=== PATIENT | male | born 1975 | race Caucasian/White ===

== ENCOUNTER → 2019-01-03 | Outpatient (CLI) | payer BC ==
[2019-01-03 15:22] LABS: Hemoglobin 15.1 g/dL (13.5-17.5)
[2019-01-03 15:36] LABS: Urine Bacteria NONE SEEN /hpf (None Seen); Urine Blood Negative /uL (Negative); Urine Mucus FEW (None Seen); Urine Specific Gravity 1.023 (1.001-1.035); Urine WBC 1 /hpf (0 - 3)
[2019-01-03 15:41] LABS: BUN/Creatinine Ratio 13.6; Calcium 8.9 mg/dL (8.5-10.1); Magnesium 2.1 mg/dL (1.6-2.6); Uric Acid 4.5 mg/dL (3.5-7.2)
[2019-01-03 15:47] LABS: Bilirubin, Total 0.4 mg/dL (0.2-1.0); Total Protein 7.7 g/dL (6.4-8.2)
[2019-01-03 15:56] LABS: Free T4 (Free Thyroxine) 0.96 ng/dL (0.89-1.76)
[2019-01-04 04:06] LABS: RPR Non Reactive (Non Reactive)
== END | disposition home or self-care (01) ==
LOC: LAB 14:13
PROVIDERS: ATTEND Internal Medicine
DX: Z76.89 Persons encountering health services in other specified circumstances (principal)
CPT/HCPCS: 36415; 80053; 80061; 81001; 82607; 83735; 84439; 84443; 84550; 85018; 86592; 86703; 87086

== ENCOUNTER 2019-05-13 11:16 | Emergency (ER) | payer BC ==
[~2019-05-13] VITALS: Ht 177.8 cm; Wt 124.7 kg
[2019-05-13] MEDS ORDERED: ALUM & MAG HYDROX-SIMETH LIQ(MAALOX) 30 ML PO ONE (12:00)
[2019-05-13] MEDS ORDERED: DONNATAL 5ml ORAL Elix (BELLADONNA ALK-PHENOBARB) PO ONE (12:00)
[2019-05-13] MEDS ORDERED: SODIUM CHLORIDE 0.9% 1,000 ML IV ONE (12:00)
[2019-05-13] MEDS ORDERED: LIDOCAINE VISCOUS 2% 15ML UD PO ONE (12:00)
[2019-05-13 12:04] LABS: Basophils # (auto) 0.1 uL; Basophils % (auto) 0.4 % (0.0-2.0); Eosinophils # (auto) 0 uL; Eosinophils % (auto) 0.1 % (0.0-7.0); Hematocrit 46.1 % (41.0-53.0); Hemoglobin 15.5 g/dL (13.5-17.5); Lymphocytes # (auto) 0.3 uL; Lymphocytes % (auto) 1.9 % (10.0-50.0); Mean Corpuscular Hemoglobin 28.5 pg (28.0-32.0); Mean Corpuscular Hgb Conc. 33.6 g/dL (32.0-36.0); Mean Corpuscular Volume 84.7 fL (80.0-100.0); Monocytes # (auto) 0.8 uL; Monocytes % (auto) 4.5 % (0.0-12.0); Neutrophils # (auto) 16.2 uL; Neutrophils % (auto) 93.1 % (37.0-80.0); Nucleated Red Blood Cells % 0.1 %; Platelet Count (auto) 290 10^3/uL (140-450); Red Blood Cells 5.44 10^6/uL (4.5-5.90); White Blood Cell 17.4 10^3/uL (4.4-10.8)
[2019-05-13 12:12] LABS: Albumin 3.6 g/dL (3.4-5.0); Calcium 8.5 mg/dL (8.5-10.1)
[2019-05-13 12:15] LABS: BUN/Creatinine Ratio 12.5
[2019-05-13 12:18] LABS: Bilirubin, Total 0.8 mg/dL (0.2-1.0); Total Protein 7.7 g/dL (6.4-8.2)
[2019-05-13] MEDS ORDERED: metroNIDAZOLE 500MG/100ML 100 ML IV ONE (14:30)
[2019-05-13] MEDS ORDERED: cefTRIAXone 1GM/50ML D5W 50 ML IV ONE (14:30)
[2019-05-13 16:00] VITALS: BP 105/62
== END 2019-05-13 14:42 | disposition home or self-care (01) ==
LOC: ER 11:16
DX: K52.9 Noninfective gastroenteritis and colitis, unspecified (principal); D72.829 Elevated white blood cell count, unspecified; Z88.0 Allergy status to penicillin
CPT/HCPCS: 36415; 74176; 80053; 85025; 96361; 96365; 96368; 99284; J0696; J3490; J7030

== ENCOUNTER → 2020-01-11 | Outpatient (CLI) | payer OTHER ==
[~2020-01-11] MED LIST: ACET-1304 PO; ALBUAER3 IN; ASCO500T11 PO; AZIT250T9 PO; CHOL20007 PO; IBUP200T76 PO; MULTTAB5 PO; NAPR220C PO; PSEU1SYP6 PO
== END | disposition home or self-care (01) ==
LOC: LAB 15:33
PROVIDERS: ATTEND Nurse Practitioner Family
DX: U07.1 COVID-19 (principal)

== ENCOUNTER 2020-01-15 05:47 | Inpatient (IN) | payer BC, OTHER ==
[~2020-01-15] VITALS: Ht 177.8 cm; Wt 122.2 kg
[2020-01-15] MEDS ORDERED: hydrOXYchloroQUINE SULFATE 200 MG TAB PO ONE (07:45)
[2020-01-15] MEDS ORDERED: DOXYCYCLINE 100MG/250ML 250 ML IV ONE (07:45)
[2020-01-15] MEDS ORDERED: DexAMETHasone SOD PHOS 10MG/1ML VIAL INJ IV ONE (07:45)
[2020-01-15 08:14] LABS: Basophils # (auto) 0 10 ^3/uL (0-0.2); Basophils % (auto) 0.2 % (0.0-2.0); Eosinophils # (auto) 0 10 ^3/uL (0-0.8); Eosinophils % (auto) 0.8 % (0.0-7.0); Hematocrit 42.8 % (41.0-53.0); Hemoglobin 14.4 g/dL (13.5-17.5); Lymphocytes # (auto) 0.7 10 ^3/uL (0.4-5.4); Lymphocytes % (auto) 12.7 % (10.0-50.0); Mean Corpuscular Hemoglobin 28.1 pg (28.0-32.0); Mean Corpuscular Hgb Conc. 33.7 g/dL (32.0-36.0); Mean Corpuscular Volume 83.3 fL (80.0-100.0); Monocytes # (auto) 0.7 10 ^3/uL (0-1.3); Neutrophils # (auto) 4.4 10 ^3/uL (1.6-8.6); Neutrophils % (auto) 74.3 % (37.0-80.0); Nucleated Red Blood Cells % 0.3 %; Platelet Count (auto) 281 10^3/uL (140-450); Red Blood Cells 5.14 10^6/uL (4.5-5.90); Red Cell Distribution Width 13.8 % (11.8-14.3); White Blood Cell 5.9 10^3/uL (4.4-10.8)
[2020-01-15 08:23] LABS: Calcium 8.3 mg/dL (8.5-10.1); Potassium 4.1 mmol/L (3.5-5.1)
[2020-01-15 08:34] LABS: BUN/Creatinine Ratio 13.6; Bilirubin, Total 0.3 mg/dL (0.2-1.0); CRP High Sensitivity 13.3 mg/dL (< 0.3); Total Protein 7.6 g/dL (6.4-8.2)
[2020-01-15 09:01] LABS: Urine Bacteria NONE SEEN /hpf (None Seen); Urine Blood Negative /uL (Negative); Urine Mucus FEW (None Seen); Urine Specific Gravity 1.029 (1.001-1.035); Urine WBC 2 /hpf (0 - 3)
[2020-01-15] MEDS ORDERED: ACETAMINOPHEN 325 MG TAB PO ONE (12:30)
[2020-01-15] MEDS ORDERED: SODIUM CHLORIDE 0.9% 1,000 ML IV SCH (16:43)
[2020-01-15] MEDS ORDERED: LORazepam 0.5 MG TAB PO PRN (16:45)
[2020-01-15] MEDS ORDERED: NITROGLYCERIN 0.4 MG SL TAB SL PRN (16:45)
[2020-01-15] MEDS ORDERED: ACETAMINOPHEN 500 MG TAB PO PRN (16:45)
[2020-01-15] MEDS ORDERED: HYDROcodone-ACET 5/325MG TAB PO PRN (16:45)
[2020-01-15] MEDS ORDERED: ALUM & MAG HYDROX-SIMETH LIQ(MAALOX) 30 ML PO PRN (16:45)
[2020-01-15] MEDS ORDERED: DOCUSATE SOD 100 MG CAP PO PRN (16:45)
[2020-01-15] MEDS ORDERED: ONDANSETRON HCL 4 MG/2 ML VIAL IV PRN (16:45)
[2020-01-15] MEDS ORDERED: MORPHINE SULF INJ 2 MG/ML SYRINGE 1ML IV PRN ×2 (16:45)
[2020-01-15] MEDS ORDERED: HYDROmorphone HCL 2 MG/ML VL IV PRN (16:45)
[2020-01-15] MEDS ORDERED: DexAMETHasone SOD PHOS 4 MG/1ML SDV INJ IV ONE ×2 (17:00→19:15)
[2020-01-15] MEDS ORDERED: FUROSEMIDE 20 MG/2 ML VIAL IV ONE (17:00)
[2020-01-15 18:33] VITALS: BP 136/82
[2020-01-15] MEDS: FUROSEMIDE 20 MG/2 ML VIAL IV SCH (18:33)
--- NOTE | 2020-01-15 18:45 | NUR ---
DECADRON IS NOT AVAILABLE AT THIS TIME. PHARMACY NOTIFIED. PHARMACIST STATED WE DONT HAVE 4MG AT THIS TIME, WILL CHANGE TO 10MG.
[2020-01-15] MEDS ORDERED: MULTTAB5 PO (18:47)
[2020-01-15] MEDS ORDERED: ASCO500T11 PO (18:47)
[2020-01-15] MEDS ORDERED: IBUP200T76 PO (18:47)
[2020-01-15] MEDS ORDERED: ALBUAER3 IN (18:47)
[2020-01-15] MEDS ORDERED: PSEU1SYP6 PO (18:47)
[2020-01-15] MEDS ORDERED: CHOL20007 PO (18:47)
[2020-01-15] MEDS ORDERED: AZIT250T9 PO (18:47)
[2020-01-15] MEDS ORDERED: ACET-1304 PO (18:47)
[2020-01-15] MEDS ORDERED: NAPR220C PO (18:48)
--- NOTE | 2020-01-15 19:28 | NUR ---
Telemetry admit from ER BROWSER,TORRI admitted to Telemetry unit after SBAR received. Patient oriented to Jorge Sneed RN primary RN, unit, room, bed, and unit policies regarding patient care and visiting hours. On droplet precaution for covid-19 positive Patient now on continuous telemetry monitoring, tele box # 7 and telemetry reading on arrival to unit is SINUS RHYTHM 86. Patient placed on bedside oxygen 2l via n/c, weighed by bedscale and encouraged to call if they need something. All questions and concerns addressed, patient verbalized understanding.Bed locked in the lowest position, call light within easy reach, will continue care.
--- NOTE | 2020-01-15 19:36 | NUR ---
NOC SHIFT RN MADE AWARE DECADRON IS NOT AVAILABLE AT THIS TIME, PHARMACY STATED WILL BULLET TO EAST.
--- NOTE | 2020-01-15 20:00 | NUR ---
Opening Shift Note Assumed care of patient, awake and alert. No S/S of distress/SOB or pain. Patient is at bedside patient verbalized understanding Instructed on POC and to call for assist PRN, will continue to monitor for changes Q1hr and PRN. bed in low position and call light within reach.
[2020-01-15 20:21] LABS: Basophils # (auto) 0 10 ^3/uL (0-0.2); Basophils % (auto) 0.3 % (0.0-2.0); Eosinophils # (auto) 0 10 ^3/uL (0-0.8); Hematocrit 43.7 % (41.0-53.0); Hemoglobin 14.4 g/dL (13.5-17.5); Lymphocytes # (auto) 0.4 10 ^3/uL (0.4-5.4); Lymphocytes % (auto) 13.6 % (10.0-50.0); Mean Corpuscular Hemoglobin 27.8 pg (28.0-32.0); Mean Corpuscular Volume 84.3 fL (80.0-100.0); Monocytes # (auto) 0.2 10 ^3/uL (0-1.3); Monocytes % (auto) 6.4 % (0.0-12.0); Neutrophils # (auto) 2.3 10 ^3/uL (1.6-8.6); Neutrophils % (auto) 79.7 % (37.0-80.0); Nucleated Red Blood Cells % 0.1 %; Platelet Count (auto) 312 10^3/uL (140-450); Red Blood Cells 5.18 10^6/uL (4.5-5.90); Red Cell Distribution Width 13.6 % (11.8-14.3); White Blood Cell 2.8 10^3/uL (4.4-10.8)
[2020-01-15 20:28] LABS: Magnesium 2.1 mg/dL (1.6-2.6)
[2020-01-15 20:29] LABS: Lactic Acid w/Reflex 3.7 mmol/L (0.4-2.0)
[2020-01-15 20:38] LABS: BUN/Creatinine Ratio 10.3; Bilirubin, Total 0.4 mg/dL (0.2-1.0); CRP High Sensitivity 12.2 mg/dL (< 0.3); Calcium 8.7 mg/dL (8.5-10.1)
[2020-01-15 20:39] LABS: Cholesterol 125 mg/dL (< 200); HDL Cholesterol 27 mg/dL (40-59); LDL Cholesterol 73 mg/dL (< 100); Triglycerides 181 mg/dL (< 150)
[2020-01-15 20:40] VITALS: BP 136/82
[2020-01-15] MEDS: DOXYCYCLINE 100MG/250ML 250 ML IV SCH (21:46)
--- NOTE | 2020-01-15 21:46 | NUR ---
patient educated on Plaquenil medication patient verbalized understanding
[2020-01-15 22:00] VITALS: BP 138/78
[2020-01-15] MEDS: ALBUTEROL SULF HFA 90MCG INH 200DOSE IN SCH (22:00)
[2020-01-15] MEDS ORDERED: DEXTROSE (50%) 50ML SYRG IV PRN (22:15)
[2020-01-16 00:06] LABS: Urine Bacteria NONE SEEN /hpf (None Seen); Urine Blood Negative /uL (Negative); Urine Specific Gravity 1.014 (1.001-1.035); Urine WBC <1 /hpf (0 - 3)
[2020-01-16 00:25] LABS: Alcohol, Urine < 3.0 mg/dL (0-10); Amphetamine Screen, Urine NEGATIVE (NEGATIVE); Barbiturate Scree,Urine NEGATIVE (NEGATIVE); Benzodiazephine Screen, Urine NEGATIVE (NEGATIVE); Cannabinoid Screen, Urine NEGATIVE (NEGATIVE); Cocaine Screen, Urine NEGATIVE (NEGATIVE); Opiate Scree,Urine NEGATIVE (NEGATIVE); Phencyclidine Screen, Urine NEGATIVE (NEGATIVE)
[2020-01-16] MEDS: FUROSEMIDE 20 MG/2 ML VIAL IV SCH ×2 (05:49→17:35)
[2020-01-16 05:54] VITALS: BP 106/71
[2020-01-16] MEDS ORDERED: DexAMETHasone SOD PHOS 10MG/1ML VIAL INJ IV SCH (06:00)
[2020-01-16] MEDS: InsuLIN REG 1unit/0.01ml Soln (100units/ml) SC SCH ×4 (06:20→21:52)
[2020-01-16] MEDS: ACCU-CHEK COMFORT CURVE STRIP VI SCH ×4 (06:20→21:53)
--- NOTE | 2020-01-16 07:25 | NUR ---
Opening Shift Note Assumed care of patient, awake and alert and oriented x4. No S/S of distress/SOB or pain reported at this time. Instructed on POC and to call for assist PRN, Instructed to use incentive spirometer Q1Hr WA, get OOB to chair and ambulate in room if tolerated, patient verbalized understanding, will continue to monitor for changes Q1hr and PRN.
[2020-01-16 07:26] LABS: Basophils # (auto) 0 10 ^3/uL (0-0.2); Basophils % (auto) 0.1 % (0.0-2.0); Eosinophils # (auto) 0 10 ^3/uL (0-0.8); Hematocrit 38.8 % (41.0-53.0); Hemoglobin 13.1 g/dL (13.5-17.5); Lymphocytes # (auto) 0.7 10 ^3/uL (0.4-5.4); Lymphocytes % (auto) 11.8 % (10.0-50.0); Mean Corpuscular Hemoglobin 28.1 pg (28.0-32.0); Mean Corpuscular Hgb Conc. 33.7 g/dL (32.0-36.0); Mean Corpuscular Volume 83.5 fL (80.0-100.0); Monocytes # (auto) 0.7 10 ^3/uL (0-1.3); Monocytes % (auto) 12.5 % (0.0-12.0); Neutrophils # (auto) 4.4 10 ^3/uL (1.6-8.6); Neutrophils % (auto) 75.6 % (37.0-80.0); Nucleated Red Blood Cells % 0.1 %; Platelet Count (auto) 326 10^3/uL (140-450); Red Blood Cells 4.65 10^6/uL (4.5-5.90); Red Cell Distribution Width 13.7 % (11.8-14.3); White Blood Cell 5.8 10^3/uL (4.4-10.8)
[2020-01-16 07:34] LABS: INR 1.11 (0.9-1.15); Partial Thromboplastin Time 28.7 sec (23.64-32.05)
[2020-01-16 07:37] LABS: Albumin 2.8 g/dL (3.4-5.0); Anion Gap 7 (5-15); Blood Urea Nitrogen 15 mg/dL (7-18); Calcium 8.2 mg/dL (8.5-10.1); Carbon Dioxide 27 mmol/L (21-32); Chloride 99 mmol/L (98-107); Glucose 320 mg/dL (74-106); Magnesium 2.2 mg/dL (1.6-2.6); Potassium 3.7 mmol/L (3.5-5.1); Sodium 133 mmol/L (136-145)
--- NOTE | 2020-01-16 07:37 | NUR ---
report given to dayshift rn patient is awake and alert patient denies sob distress or pain.
[2020-01-16 07:45] LABS: Alanine Aminotransferase 76 U/L (16-61); Alkaline Phosphatase 70 U/L (45-117); Aspartate Aminotransferase 38 U/L (15-37); BUN/Creatinine Ratio 18.5; Bilirubin, Total 0.4 mg/dL (0.2-1.0); CRP High Sensitivity 8.59 mg/dL (< 0.3); GFR African American 133 mL/min; GFR Non-African American 110 mL/min; Lactate Dehydrogenase 305 U/L (87-241); Phosphorus 2.8 mg/dL (2.5-4.90); Total Protein 7.4 g/dL (6.4-8.2); Uric Acid 4.3 mg/dL (3.5-7.2)
[2020-01-16 08:00] VITALS: BP 133/76
[2020-01-16 09:00] VITALS: BP 133/76
[2020-01-16] MEDS: ALBUTEROL SULF HFA 90MCG INH 200DOSE IN SCH ×3 (09:20→23:51)
[2020-01-16] MEDS: ASCORBIC ACID 1,000 MG TAB PO SCH (09:48)
[2020-01-16] MEDS: ZINC SULFATE 220mg CAP or TAB PO SCH (09:48)
[2020-01-16] MEDS: DOXYCYCLINE 100MG/250ML 250 ML IV SCH ×2 (09:49→21:41)
[2020-01-16] MEDS: DexAMETHasone SOD PHOS 10MG/1ML VIAL INJ IV SCH (09:49)
[2020-01-16] MEDS ORDERED: ENOXAPARIN SOD 40 MG/0.4 ML SYRINGE SC SCH (10:00)
[2020-01-16] MEDS: CHOLECALCIFEROL (VITD3) 1,000UNIT=25mCg TAB PO SCH (10:10)
--- NOTE | 2020-01-16 11:35 | NUR ---
AT BEDSIDE DR AUGUSTE AT BEDSIDE, NEW ORDERS RECEIVED, CONT CARE
--- NOTE | 2020-01-16 12:20 | NUR ---
INCENTIVE SPIROMETER PT INSTRUCTED TO DEMONSTRATE HOW TO USE IS, PT ABLE TO DEMONSTRATE AND RAISE MARKER ON INCENTIVE SPIROMETER TO 1750X2 AND 2000 X1, MINIMAL COUGHING NOTED, NO C/O SOB, WILL CONT AND MONITOR AND ENCOURAGE AMBULATION AND THE USE OF IS, CONT CARE
[2020-01-16 13:00] VITALS: BP 138/92
[2020-01-16 17:00] VITALS: BP 135/78
--- NOTE | 2020-01-16 20:00 | NUR ---
Opening Shift Note Assumed care of patient, awake and alert. No S/S of distress/SOB or pain. Instructed on POC and to call for assist PRN, will continue to monitor for changes Q1hr and PRN. bed in low position and call light within reach
[2020-01-16] MEDS: ZOLPIDEM TARTRATE 5 MG TAB PO PRN (21:42)
[2020-01-16] MEDS: ENOXAPARIN SOD 120 MG/0.8 ML SYRINGE SC SCH (21:43)
[2020-01-16] MEDS ORDERED: INSULIN 70/30 1unit/0.01ml Susp (100units/ml) SC SCH (22:00)
[2020-01-16 22:29] VITALS: BP 140/84
[2020-01-16] MEDS: BUDESONIDE (INHALATION) 0.5 MG/2 ML NEB NEB SCH (23:51)
[2020-01-17 05:00] VITALS: BP 132/78
[2020-01-17] MEDS: FUROSEMIDE 20 MG/2 ML VIAL IV SCH ×2 (05:59→18:05)
[2020-01-17] MEDS: InsuLIN REG 1unit/0.01ml Soln (100units/ml) SC SCH ×4 (06:30→22:00)
[2020-01-17] MEDS: ACCU-CHEK COMFORT CURVE STRIP VI SCH ×4 (06:30→21:34)
--- NOTE | 2020-01-17 07:35 | NUR ---
Opening Shift Note Assumed care of patient, awake and alert and oriented x4. No S/S of distress/SOB or pain reported at this time, Currently on 2l via NC, Instructed on POC and to call for assist PRN, Instructed to use incentive spirometer Q1Hr WA, get OOB to chair and ambulate in room if tolerated, patient verbalized understanding, call light within reach, will continue to monitor for changes Q1hr and PRN.
[2020-01-17 08:00] VITALS: BP 120/62
[2020-01-17] MEDS: BUDESONIDE (INHALATION) 0.5 MG/2 ML NEB NEB SCH ×2 (08:46→21:49)
[2020-01-17] MEDS: ALBUTEROL SULF HFA 90MCG INH 200DOSE IN SCH ×3 (08:46→21:49)
[2020-01-17 09:23] VITALS: BP 120/62
[2020-01-17] MEDS ORDERED: INSULIN 70/30 1unit/0.01ml Susp (100units/ml) SC SCH (10:00)
[2020-01-17] MEDS: ENOXAPARIN SOD 120 MG/0.8 ML SYRINGE SC SCH ×2 (11:01→21:37)
[2020-01-17] MEDS: DOXYCYCLINE 100MG/250ML 250 ML IV SCH ×2 (11:01→21:36)
[2020-01-17] MEDS: DexAMETHasone SOD PHOS 10MG/1ML VIAL INJ IV SCH (11:01)
[2020-01-17] MEDS: ZINC SULFATE 220mg CAP or TAB PO SCH (11:02)
[2020-01-17] MEDS: ASCORBIC ACID 1,000 MG TAB PO SCH (11:02)
[2020-01-17] MEDS: CHOLECALCIFEROL (VITD3) 1,000UNIT=25mCg TAB PO SCH (11:02)
--- NOTE | 2020-01-17 11:10 | NUR ---
DR AUGUSTE AT BEDSIDE
--- NOTE | 2020-01-17 12:18 | NUR ---
Nutrition Assessment Notes Please refer to link for full assessment notes. Est Energy needs: 9360-9950 kcals (12-15 kcal/kgBW) Est Protein needs: 151-189 gms/day (2.0-2.5 gm/kgIBW) Will continue to monitor and reassess prn. Addendum: 01/17/20 at [address] Amended: Links added. Addendum: 01/17/20 at [address] Additional Recommendation Suggest a CCHO 60g diet
[2020-01-17 12:34] VITALS: BP 125/75
--- NOTE | 2020-01-17 14:40 | NUR ---
SELF PRONE PT IN PRONE POSITION, NO DISTRESS NOTED, CONT CARE
[2020-01-17 16:33] VITALS: BP 136/85
--- NOTE | 2020-01-17 18:00 | NUR ---
AMBULATION PT AMBULATING IN ROOM, USING O2 SENIOR INTERNAL AUDITOR, NO S/S OF DISTRESS, SOB OR DISCOMFORT NOTED AT THIS TIME, CONT CARE
--- NOTE | 2020-01-17 19:30 | NUR ---
STATUS PT RESTING IN BED AWAKE A&O WITH NO C/O PAIN PT ON 2L NC WITH NO SOB AT REST. COUGH UPON DEEP BREATHING. NO REQUESTS AT THIS TIME, WILL CONTINUE TO MONITOR.
[2020-01-17] MEDS: INSULIN 70/30 1unit/0.01ml Susp (100units/ml) SC SCH (21:57)
[2020-01-17 22:02] VITALS: BP 147/86
--- NOTE | 2020-01-17 22:34 | NUR ---
ESTEPHANIE CALLED TO REQUEST ABILITY TO GIVE TYLENOL FOR MILD HEADACHE PER PT REQUEST. ORDER GIVEN.
[2020-01-17] MEDS: ZOLPIDEM TARTRATE 5 MG TAB PO PRN (22:44)
[2020-01-17] MEDS: ACETAMINOPHEN 500 MG TAB PO PRN (22:45)
--- NOTE | 2020-01-17 23:06 | NUR ---
IV RESTART IV STARTED TO RIGHT FA #20 IV REMOVED FROM LEFT AC WITH CATHETER INTACT
--- NOTE | 2020-01-18 01:13 | NUR ---
STATUS PT RESTING IN BED WITH EYES CLOSED RESPIRATIONS EQUAL AND UNLABORED NO S/S OF DISTRESS OR DISCOMFORT
--- NOTE | 2020-01-18 03:09 | NUR ---
REPORT GIVEN TO ROMARIO BEY TO CONTINUE POC
[2020-01-18 05:00] VITALS: BP 146/93
--- NOTE | 2020-01-18 05:12 | NUR ---
PT SLEEPING AT THIS TIME BREATHING EVEN AND UNLABORED, O2 @ 2L VIA NC, NO DISTRESS NOTED, CONT CARE Addendum: 01/18/20 at 0513 by Naomi Sena RN Amended: Links added.
[2020-01-18] MEDS: FUROSEMIDE 20 MG/2 ML VIAL IV SCH ×2 (06:08→17:40)
[2020-01-18] MEDS: ACCU-CHEK COMFORT CURVE STRIP VI SCH ×4 (06:08→22:18)
[2020-01-18] MEDS: InsuLIN REG 1unit/0.01ml Soln (100units/ml) SC SCH ×4 (06:52→22:00)
[2020-01-18] MEDS: ALBUTEROL SULF HFA 90MCG INH 200DOSE IN SCH ×3 (07:19→22:17)
[2020-01-18] MEDS: BUDESONIDE (INHALATION) 0.5 MG/2 ML NEB NEB SCH ×2 (07:19→22:34)
[2020-01-18 08:00] VITALS: BP 109/63
[2020-01-18 08:36] VITALS: BP 109/63
[2020-01-18] MEDS: DOXYCYCLINE 100MG/250ML 250 ML IV SCH ×2 (09:44→22:05)
[2020-01-18] MEDS: ENOXAPARIN SOD 120 MG/0.8 ML SYRINGE SC SCH ×2 (09:44→22:17)
[2020-01-18] MEDS: DexAMETHasone SOD PHOS 10MG/1ML VIAL INJ IV SCH (09:44)
[2020-01-18] MEDS: ASCORBIC ACID 1,000 MG TAB PO SCH (09:45)
[2020-01-18] MEDS: CHOLECALCIFEROL (VITD3) 1,000UNIT=25mCg TAB PO SCH (09:45)
[2020-01-18] MEDS: ZINC SULFATE 220mg CAP or TAB PO SCH (09:46)
[2020-01-18] MEDS: INSULIN 70/30 1unit/0.01ml Susp (100units/ml) SC SCH (09:59)
[2020-01-18 12:36] VITALS: BP 123/81
--- NOTE | 2020-01-18 12:40 | NUR ---
AT BEDSIDE DR AUGUSTE AT BEDSIDE, DISCUSSING POC WITH PT, PT AXOX4, MD ORDERS TO WEAN PT OFF O2 AND ASSESS FOR RESP DISTRESS, PT UPDATED, CONT CARE
--- NOTE | 2020-01-18 14:25 | NUR ---
RT AT BEDSIDE/O2 REMOVED PT INSTRUCTED TO CALL STAFF IMMEDIATELY IF SOB OCCURS, PT ABLE TO VERBALIZE UNDERSTANDING, AND DEMONSTRATE HOW TO RE-APPLY OXYGEN @ 2L VIA NC, CONT CARE
--- NOTE | 2020-01-18 15:40 | NUR ---
OOB TO CHAIR ON RA, NO DISTRESS NOTED, CONT CARE
[2020-01-18 16:43] VITALS: BP 124/73
--- NOTE | 2020-01-18 19:30 | NUR ---
Opening Shift Note Assumed care of patient, awake and alert. No S/S of distress/SOB or pain. Patient states that he is feeling better. Bed is locked in lowest position with call light within reach. Instructed on POC and to call for assist PRN, will continue to monitor for changes Q1hr and PRN.
[2020-01-18 22:00] VITALS: BP 139/80
--- NOTE | 2020-01-18 22:00 | NUR ---
PAIN ASSESSMENT The patient states that he is having throat pain which he reports is a 2/10. Requesting Tylenol for pain.
[2020-01-18] MEDS: ZOLPIDEM TARTRATE 5 MG TAB PO PRN (22:04)
[2020-01-18] MEDS: ACETAMINOPHEN 500 MG TAB PO PRN (22:04)
--- NOTE | 2020-01-18 23:05 | NUR ---
PAIN REASSESSMENT Patient states that his pain has improved to 0/10. Will continue to monitor the patient's status.
[2020-01-19 02:55] VITALS: BP 139/80
[2020-01-19 05:38] VITALS: BP 115/48
[2020-01-19] MEDS: FUROSEMIDE 20 MG/2 ML VIAL IV SCH (06:16)
[2020-01-19] MEDS: ALBUTEROL SULF HFA 90MCG INH 200DOSE IN SCH (06:16)
[2020-01-19] MEDS: InsuLIN REG 1unit/0.01ml Soln (100units/ml) SC SCH ×2 (06:55→11:57)
[2020-01-19] MEDS: ACCU-CHEK COMFORT CURVE STRIP VI SCH ×2 (06:55→11:56)
[2020-01-19] MEDS: BUDESONIDE (INHALATION) 0.5 MG/2 ML NEB NEB SCH (07:19)
[2020-01-19 09:00] VITALS: BP 111/60
[2020-01-19] MEDS: ZINC SULFATE 220mg CAP or TAB PO SCH (09:52)
[2020-01-19] MEDS: DexAMETHasone SOD PHOS 10MG/1ML VIAL INJ IV SCH (09:52)
[2020-01-19] MEDS: ASCORBIC ACID 1,000 MG TAB PO SCH (09:53)
[2020-01-19] MEDS: ENOXAPARIN SOD 120 MG/0.8 ML SYRINGE SC SCH (09:53)
[2020-01-19] MEDS: CHOLECALCIFEROL (VITD3) 1,000UNIT=25mCg TAB PO SCH (09:53)
[2020-01-19] MEDS ORDERED: INSULIN 70/30 1unit/0.01ml Susp (100units/ml) SC SCH (10:00)
[2020-01-19] MEDS: DOXYCYCLINE 100MG/250ML 250 ML IV SCH (10:05)
[2020-01-19 10:46] LABS: Basophils # (auto) 0 10 ^3/uL (0-0.2); Basophils % (auto) 0.4 % (0.0-2.0); Eosinophils # (auto) 0.1 10 ^3/uL (0-0.8); Hemoglobin 14.7 g/dL (13.5-17.5); Monocytes # (auto) 1.6 10 ^3/uL (0-1.3); Monocytes % (auto) 12.7 % (0.0-12.0); Red Cell Distribution Width 13.7 % (11.8-14.3)
[2020-01-19 10:49] LABS: Eosinophils % (auto) 0.4 % (0.0-7.0); Hematocrit 43.8 % (41.0-53.0); Lymphocytes # (auto) 2.5 10 ^3/uL (0.4-5.4); Lymphocytes % (auto) 20.4 % (10.0-50.0); Mean Corpuscular Hemoglobin 27.7 pg (28.0-32.0); Mean Corpuscular Hgb Conc. 33.6 g/dL (32.0-36.0); Mean Corpuscular Volume 82.3 fL (80.0-100.0); Neutrophils # (auto) 8.2 10 ^3/uL (1.6-8.6); Neutrophils % (auto) 66.1 % (37.0-80.0); Nucleated Red Blood Cells % 0.3 %; Platelet Count (auto) 485 10^3/uL (140-450); Red Blood Cells 5.32 10^6/uL (4.5-5.90); White Blood Cell 12.4 10^3/uL (4.4-10.8)
[2020-01-19 11:06] LABS: Albumin 3.1 g/dL (3.4-5.0); CRP High Sensitivity 0.64 mg/dL (< 0.3); Calcium 8.5 mg/dL (8.5-10.1)
[2020-01-19 11:09] LABS: BUN/Creatinine Ratio 16.3; Bilirubin, Total 0.6 mg/dL (0.2-1.0); Total Protein 7.2 g/dL (6.4-8.2)
[2020-01-19 11:14] LABS: Potassium 2.9 mmol/L (3.5-5.1)
--- NOTE | 2020-01-19 11:19 | NUR ---
paged Dr. Santiago re: critical K 2.9, waiting for call back.
--- NOTE | 2020-01-19 11:40 | NUR ---
pt seen by Dr. Santiago, pt made aware he can go home today with prescription.
[2020-01-19] MEDS ORDERED: POTASSIUM CHL 20 Meq TABLET PO ONE (11:45)
[2020-01-19 13:00] VITALS: BP 107/64
[2020-01-19 14:52] VITALS: BP 107/64
--- NOTE | 2020-01-19 16:47 | NUR ---
Discharge instructions given as ordered. Encourage to follow up with DR. AUGUSTE ON 02/06/20 AT 3:15 PM as instructed. All questions and concerns addressed. Patient verbalized understanding. Medication reconciliation form completed and copy given to patient. Home medications held in Pharmacy returned to patient, and needed vaccines given. IV removed with catheter intact, pressure dressing applied. Telemetry unit returned to ICU. Patient taken to vehicle with all personal belongings, accompanied by staff . No distress noted at time of departure.
== END 2020-01-19 16:47 | disposition home or self-care (01) | DRG 177 ==
LOC: ER 05:47 → EEVIPCON 05:47 → TELE 05:48 → TELE-EAST 18:00
PROVIDERS: ADMIT Hospitalist; ATTEND Internal Medicine
DX: U07.1 COVID-19 (principal); J96.01 Acute respiratory failure with hypoxia; J12.89 Other viral pneumonia; E44.0 Moderate protein-calorie malnutrition; E88.81 Metabolic syndrome and other insulin resistance; E66.01 Morbid (severe) obesity due to excess calories; E87.6 Hypokalemia; E11.21 Type 2 diabetes mellitus with diabetic nephropathy; Z68.39 Body mass index [BMI] 39.0-39.9, adult; Z68.38 Body mass index [BMI] 38.0-38.9, adult; Z88.0 Allergy status to penicillin
CPT/HCPCS: 36415; 71045; 80053; 80061; 80307; 81001; 82306; 82728; 82962; 83036; 83605; 83615; 83735; 83880; 84100; 84443; 84484; 84550; 85025; 85379; 85610; 85652; 85730; 86141; 87086; 93005; 94640; 99291; G0378; J1100; J1815; J3490

== ENCOUNTER → 2020-03-26 | Outpatient (CLI) | payer BC ==
[2020-03-26 09:23] LABS: Urine Bacteria NONE SEEN /hpf (None Seen); Urine Blood Negative /uL (Negative); Urine Mucus FEW (None Seen); Urine Specific Gravity 1.025 (1.001-1.035); Urine WBC 1 /hpf (0 - 3)
== END | disposition home or self-care (01) ==
LOC: LAB 08:54
PROVIDERS: ATTEND Internal Medicine
DX: E11.22 Type 2 diabetes mellitus with diabetic chronic kidney disease (principal); N18.9 Chronic kidney disease, unspecified
CPT/HCPCS: 36415; 81001; 82043; 83036

== ENCOUNTER → 2020-11-20 | Outpatient (CLI) | payer BC ==
[2020-11-20 11:06] LABS: Basophils # (auto) 0.1 10 ^3/uL (0-0.2); Basophils % (auto) 1.2 % (0.0-2.0); Eosinophils # (auto) 0.1 10 ^3/uL (0-0.8); Eosinophils % (auto) 1.4 % (0.0-7.0); Hematocrit 42.6 % (41.0-53.0); Hemoglobin 14.8 g/dL (13.5-17.5); Lymphocytes # (auto) 2.7 10 ^3/uL (0.4-5.4); Lymphocytes % (auto) 32.1 % (10.0-50.0); Mean Corpuscular Hemoglobin 29.6 pg (28.0-32.0); Mean Corpuscular Hgb Conc. 34.8 g/dL (32.0-36.0); Mean Corpuscular Volume 85.2 fL (80.0-100.0); Monocytes # (auto) 0.7 10 ^3/uL (0-1.3); Monocytes % (auto) 8.8 % (0.0-12.0); Neutrophils # (auto) 4.7 10 ^3/uL (1.6-8.6); Neutrophils % (auto) 56.5 % (37.0-80.0); Nucleated Red Blood Cells % 0.1 %; Platelet Count (auto) 284 10^3/uL (140-450); Red Cell Distribution Width 13.5 % (11.8-14.3); White Blood Cell 8.3 10^3/uL (4.4-10.8)
[2020-11-20 12:28] LABS: Albumin 3.7 g/dL (3.4-5.0); Potassium 4.1 mmol/L (3.5-5.1)
[2020-11-20 12:36] LABS: BUN/Creatinine Ratio 16.7; Bilirubin, Total 0.3 mg/dL (0.2-1.0); Calcium 8.6 mg/dL (8.5-10.1); Total Protein 7.1 g/dL (6.4-8.2)
== END | disposition home or self-care (01) ==
LOC: LAB 10:49
PROVIDERS: ATTEND Internal Medicine
DX: E11.22 Type 2 diabetes mellitus with diabetic chronic kidney disease (principal); N18.9 Chronic kidney disease, unspecified
CPT/HCPCS: 36415; 80053; 80061; 82607; 83036; 85025

== ENCOUNTER → 2022-02-26 | Outpatient (CLI) | payer BC ==
[2022-02-26 09:26] LABS: Basophils # (auto) 0.1 10 ^3/uL (0-0.2); Basophils % (auto) 1.5 % (0.0-2.0); Eosinophils # (auto) 0.1 10 ^3/uL (0-0.8); Eosinophils % (auto) 1.8 % (0.0-7.0); Hematocrit 40.8 % (41.0-53.0); Hemoglobin 13.6 g/dL (13.5-17.5); Lymphocytes # (auto) 2.3 10 ^3/uL (0.4-5.4); Lymphocytes % (auto) 30.7 % (10.0-50.0); Mean Corpuscular Hemoglobin 28.5 pg (28.0-32.0); Mean Corpuscular Hgb Conc. 33.3 g/dL (32.0-36.0); Mean Corpuscular Volume 85.5 fL (80.0-100.0); Monocytes # (auto) 0.7 10 ^3/uL (0-1.3); Monocytes % (auto) 8.9 % (0.0-12.0); Neutrophils # (auto) 4.3 10 ^3/uL (1.6-8.6); Neutrophils % (auto) 57.1 % (37.0-80.0); Red Blood Cells 4.77 10^6/uL (4.5-5.90); Red Cell Distribution Width 13.9 % (11.8-14.3); White Blood Cell 7.5 10^3/uL (4.4-10.8)
[2022-02-26 09:35] LABS: Urine Bacteria NONE SEEN /hpf (None Seen); Urine Blood Negative /uL (Negative); Urine Specific Gravity 1.026 (1.001-1.035); Urine WBC <1 /hpf (0 - 3)
[2022-02-26 09:56] LABS: Albumin 3.7 g/dL (3.4-5.0)
[2022-02-26 10:06] LABS: BUN/Creatinine Ratio 15.9; Bilirubin, Total 0.4 mg/dL (0.2-1.0); Calcium 8.5 mg/dL (8.5-10.1); Total Protein 6.8 g/dL (6.4-8.2)
== END | disposition home or self-care (01) ==
LOC: LAB 09:05
PROVIDERS: ATTEND Internal Medicine
DX: E11.9 Type 2 diabetes mellitus without complications (principal); E78.5 Hyperlipidemia, unspecified; I10 Essential (primary) hypertension
CPT/HCPCS: 36415; 80053; 80061; 81001; 82043; 83036; 84403; 85025

== ENCOUNTER → 2022-12-02 | Outpatient (CLI) | payer BC ==
[~2022-12-02] MED LIST changes: +AZIT-43 PO; -AZIT250T9 PO
[2022-12-02 10:22] LABS: BUN/Creatinine Ratio 16.3 (10.0-20.0); Calcium 8.7 mg/dL (8.5-10.1); Potassium 4.2 mmol/L (3.5-5.1)
[2022-12-02 10:27] LABS: Bilirubin, Total 0.6 mg/dL (0.2-1.0); Total Protein 7.4 g/dL (6.4-8.2)
== END | disposition home or self-care (01) ==
LOC: LAB 09:36
PROVIDERS: ATTEND Internal Medicine
DX: Z12.11 Encounter for screening for malignant neoplasm of colon (principal); E11.42 Type 2 diabetes mellitus with diabetic polyneuropathy
CPT/HCPCS: 36415; 80053; 80061

== ENCOUNTER → 2023-03-30 | Outpatient (CLI) | payer BC | END | disposition home or self-care (01) | LOC: XYW 12:42 | PROVIDERS: ATTEND Student in an Organized Health Care Education/Training Program | DX: Z01.810 Encounter for preprocedural cardiovascular examination (principal); S46.812D Strain of other muscles, fascia and tendons at shoulder and upper arm level, left arm, subsequent encounter; I51.89 Other ill-defined heart diseases; X58.XXXD Exposure to other specified factors, subsequent encounter | CPT/HCPCS: 93306 ==

== ENCOUNTER → 2023-04-01 | Outpatient (CLI) | payer BC ==
[2023-04-01 15:07] VITALS: BP 169/132; PULSE 85; RESP 18
== END | disposition home or self-care (01) ==
LOC: XYW 08:18
PROVIDERS: ATTEND Student in an Organized Health Care Education/Training Program
DX: Z01.810 Encounter for preprocedural cardiovascular examination (principal); R06.02 Shortness of breath
CPT/HCPCS: 93017

== ENCOUNTER 2023-04-13 06:22 | Day surgery (SDC) | payer BC ==
[2023-04-12 08:59] LABS: Urine WBC None Seen /hpf (0 - 3)
[2023-04-12 09:13] LABS: Basophils # (auto) 0.1 10 ^3/uL (0-0.2); Basophils % (auto) 1.1 % (0.0-2.0); Eosinophils # (auto) 0.2 10 ^3/uL (0-0.8); Eosinophils % (auto) 2.3 % (0.0-7.0); Hemoglobin 15.1 g/dL (13.5-17.5); Lymphocytes # (auto) 2.1 10 ^3/uL (0.4-5.4); Mean Corpuscular Hemoglobin 28.7 pg (28.0-32.0); Mean Corpuscular Hgb Conc. 33.6 g/dL (32.0-36.0); Mean Corpuscular Volume 85.6 fL (80.0-100.0); Monocytes # (auto) 0.7 10 ^3/uL (0-1.3); Monocytes % (auto) 8.9 % (0.0-12.0); Neutrophils % (auto) 61.7 % (37.0-80.0); Red Blood Cells 5.26 10^6/uL (4.5-5.90)
[2023-04-12 09:31] LABS: INR 1.05 (0.9-1.15); Partial Thromboplastin Time 28.8 SEC (24.5-34.5)
[2023-04-12 10:00] LABS: Alanine Aminotransferase 21 U/L (7-40); Albumin 4.6 g/dL (3.2-4.8); Alkaline Phosphatase 66 U/L (46-116); Anion Gap 6 (5-15); Aspartate Aminotransferase 9 U/L (13-40); BUN/Creatinine Ratio 14.3 (10.0-20.0); Bilirubin, Total 0.7 mg/dL (0.2-1.0); Blood Urea Nitrogen 12 mg/dL (9-23); Calcium 9.1 mg/dL (8.5-10.1); Carbon Dioxide 29 mmol/L (20-30); Chloride 104 mmol/L (98-107); Glucose 118 mg/dL (74-106); Potassium 4.5 mmol/L (3.5-5.1); Sodium 139 mmol/L (136-145)
[2023-04-12 10:01] LABS: Total Protein 7.2 g/dL (5.7-8.2)
[2023-04-12 10:37] LABS: Urine Bacteria NONE SEEN /hpf (None Seen)
[2023-04-12 13:09] LABS: Urine Clarity CLEAR (Clear); Urine Color Yellow (Yellow); Urine Specific Gravity 1.015 (1.001-1.035)
[2023-04-12 13:10] LABS: Urine Blood Normal /uL (Negative); Urine Protein, UAD Normal (Negative); Urine Urobilinogen Normal (Negative)
[~2023-04-13] VITALS: Ht 177.8 cm; Wt 108.4 kg
[~2023-04-13 06:22] MED LIST changes: -ACET-1304 PO; -ALBUAER3 IN; -AZIT-43 PO; +CLINDAMYCIN 600MG IV 50 ML IV ONE; +DAPA1TAB4 PO; -IBUP200T76 PO; +METF-370 PO; -NAPR220C PO; -PSEU1SYP6 PO; +ROSU5TAB5 PO; +TIRZ10IN SC; +VALS40TA2 PO
[2023-04-13] MEDS ORDERED: EPINEPHrine HCL 1 MG/1 ML AMP ONE ×3 (06:54→09:25)
[2023-04-13] MEDS ORDERED: BUPIVACAINE HCL 50 ML ONE (07:03)
[2023-04-13] MEDS ORDERED: fentaNYL CITRATE 100 MCG/2 ML VL ONE (07:07)
[2023-04-13] MEDS ORDERED: MIDAZOLAM HCL 2MG/2ML 2ml VIAL (1mg/ml) ONE (07:07)
[2023-04-13] MEDS ORDERED: SODIUM CHLORIDE LOCK 10 ML ONE (07:08)
[2023-04-13] MEDS ORDERED: MEPERIDINE HCL (50 MG/ML) 1 ML VIAL ONE (07:08)
[2023-04-13] MEDS ORDERED: DexAMETHasone SOD PHOS 10MG/1ML VIAL INJ ONE (07:08)
[2023-04-13] MEDS ORDERED: ONDANSETRON HCL 4 MG/2 ML VIAL ONE (07:08)
[2023-04-13] MEDS ORDERED: NEOSTIGMINE 1 MG/ML INJ (10mg/10ML VIAL) ONE (07:08)
[2023-04-13] MEDS ORDERED: PROPOFOL 10 MG/ML 20 ML IV ONE (07:08)
[2023-04-13] MEDS ORDERED: ROCURONIUM 10MG/ML 10ML VIAL IV ONE (07:08)
[2023-04-13] MEDS ORDERED: HYDROmorphone HCL 2 MG/ML VL/or syr IV PRN (07:30)
[2023-04-13] MEDS ORDERED: MORPHINE SULFATE INJ 2 MG/ml SYRG IV PRN (07:30)
[2023-04-13] MEDS ORDERED: ACCU-CHEK COMFORT CURVE STRIP VI ONE (07:30)
[2023-04-13] MEDS ORDERED: METOCLOPRAMIDE HCL 5MG/ml INJ 2ml VIAL IV PRN (07:30)
[2023-04-13] MEDS ORDERED: CLINDAMYCIN 300MG IV 50 ML IV ONE (07:30)
[2023-04-13] MEDS ORDERED: HYDR1TAB97 PO (09:52)
[2023-04-13] MEDS ORDERED: CEPH250C PO (09:55)
[2023-04-13 09:57] VITALS: TEMP 96.7; O2SAT 98
[2023-04-13] MEDS ORDERED: HYDROmorphone HCL 2 MG/ML VL/or syr ONE (10:24)
[2023-04-13] MEDS: HYDROmorphone HCL 2 MG/ML VL/or syr IV PRN ×2 (10:26→10:43)
[2023-04-13 11:12] VITALS: BP 133/68; PULSE 84; RESP 13; O2SAT 97
== END 2023-04-13 11:38 | disposition home or self-care (01) ==
LOC: SUR 06:22
PROVIDERS: ATTEND Orthopaedic Surgery Sports Medicine
DX: S46.011A Strain of muscle(s) and tendon(s) of the rotator cuff of right shoulder, initial encounter (principal); M65.811 Other synovitis and tenosynovitis, right shoulder; X58.XXXA Exposure to other specified factors, initial encounter; Y93.89 Activity, other specified; Y92.89 Other specified places as the place of occurrence of the external cause; Y99.8 Other external cause status; E11.9 Type 2 diabetes mellitus without complications; Z79.899 Other long term (current) drug therapy; I10 Essential (primary) hypertension; Z98.890 Other specified postprocedural states
CPT/HCPCS: 29826; 29827; 36415; 80053; 81001; 82962; 85025; 85610; 85730; C1713; J0171; J1100; J1170; J2175; J2250; J2405; J2704; J3010; J3490; A4565

== ENCOUNTER → 2023-06-02 | Outpatient (CLI) | payer BC ==
[~2023-06-02] MED LIST changes: +CEPH250C PO; -CLINDAMYCIN 600MG IV 50 ML IV ONE; +HYDR1TAB97 PO
[2023-06-02 10:22] LABS: Creatinine, Urine 141.46 mg/dL (30.0-125.0)
[2023-06-02 10:24] LABS: Micro Albumin < 3.0 mg/L (<30.0)
[2023-06-02 10:33] LABS: Alanine Aminotransferase 25 U/L (7-40); Albumin 4.4 g/dL (3.2-4.8); Alkaline Phosphatase 65 U/L (46-116); Anion Gap 6 (5-15); Aspartate Aminotransferase 14 U/L (13-40); BUN/Creatinine Ratio 12.7 (10.0-20.0); Blood Urea Nitrogen 10 mg/dL (9-23); Calcium 9.3 mg/dL (8.5-10.1); Chloride 105 mmol/L (98-107); Glucose 105 mg/dL (74-106); LDL Cholesterol 66 mg/dL (< 100); Potassium 4.2 mmol/L (3.5-5.1); Sodium 140 mmol/L (136-145); Triglycerides 164 mg/dL (< 150)
[2023-06-02 10:34] LABS: Bilirubin, Total 0.5 mg/dL (0.2-1.0); Cholesterol 128 mg/dL (< 200); HDL Cholesterol 40 mg/dL (40-59); Total Protein 6.8 g/dL (5.7-8.2)
[2023-06-02 12:30] LABS: Carbon Dioxide 27 mmol/L (20-30)
== END | disposition home or self-care (01) ==
LOC: LAB 08:57
PROVIDERS: ATTEND Internal Medicine
DX: E11.9 Type 2 diabetes mellitus without complications (principal); E78.5 Hyperlipidemia, unspecified
CPT/HCPCS: 36415; 80053; 80061; 82043; 82570; 83036

== ENCOUNTER → 2023-06-03 | Outpatient (CLI) | payer BC | END | disposition home or self-care (01) | LOC: LAB 11:04 | PROVIDERS: ATTEND Internal Medicine | DX: N52.9 Male erectile dysfunction, unspecified (principal) | CPT/HCPCS: 36415; 84403 ==

== ENCOUNTER 2025-06-11 08:33 | Outpatient (CLI) | payer BC ==
[2025-06-11 09:23] LABS: Hematocrit 46.3 % (41.0-53.0); Hemoglobin 15.7 g/dL (13.5-17.5); Mean Corpuscular Hemoglobin 29.0 pg (28.0-32.0); Mean Corpuscular Volume 85.5 fL (80.0-100.0); Nucleated Red Blood Cells % 0.0 %
[2025-06-11 09:58] LABS: Microalb/Creat Ratio, Urine < 3.0
[2025-06-11 10:01] LABS: Alanine Aminotransferase 19 U/L (7-40); Albumin 4.4 g/dL (3.2-4.8); Alkaline Phosphatase 68 U/L (46-116); Anion Gap 9 (5-15); BUN/Creatinine Ratio 13.7 (10.0-20.0); Blood Urea Nitrogen 13 mg/dL (9-23); Calcium 9.0 mg/dL (8.7-10.4); Carbon Dioxide 29 mmol/L (20-31); Chloride 103 mmol/L (98-107); Cholesterol 109 mg/dL (< 200); Glucose 85 mg/dL (74-106); Potassium 4.1 mmol/L (3.5-5.1); Sodium 141 mmol/L (136-145); Total Protein 7.1 g/dL (5.7-8.2); Triglycerides 120 mg/dL (< 150)
[2025-06-11 10:02] LABS: Bilirubin, Total 0.8 mg/dL (0.2-1.0)
[2025-06-11 10:34] LABS: HDL Cholesterol 40 mg/dL (40-59)
== END 2025-06-11 17:00 | disposition home or self-care (01) ==
LOC: LAB 08:33
PROVIDERS: ATTEND Internal Medicine
DX: E11.9 Type 2 diabetes mellitus without complications (principal); E78.5 Hyperlipidemia, unspecified; N52.9 Male erectile dysfunction, unspecified
CPT/HCPCS: 36415; 80053; 80061; 82043; 82570; 83036; 84443; 85025